=== PATIENT | male | born 1975 | race American Indian/Alaskan Native ===

== ENCOUNTER 2017-04-16 07:31 | Emergency (ER) | payer OTHER ==
[2017-04-16 07:37] VITALS: BP 152/100
[2017-04-16 09:21] LABS: Basophils % (Auto) 0.4 % (0.0-1.8); Eosinophils % (Auto) 1.1 % (0.0-4.3); Hematocrit 45.2 % (35.5-45.6); Hemoglobin 14.9 gm/dl (11.8-15.2); Mean Corpuscular HGB Conc 33 % (32-34); Mean Corpuscular Hemoglobin 29 pg (28-32); Mean Corpuscular Volume 89 fl (84-94); Platelet Count 132 K/mm3 (140-440); Red Blood Count 5.09 M/mm3 (3.65-5.03); Red Cell Distribution Width 13.9 % (13.2-15.2); White Blood Count 13.9 K/mm3 (4.5-11.0)
[2017-04-16 09:26] LABS: Anion Gap 17 mmol/L; BUN/Creatinine Ratio 8.88; Blood Urea Nitrogen 8 mg/dL (9-20); Calcium 9.8 mg/dL (8.4-10.2); Carbon Dioxide 29 mmol/L (22-30); Chloride 94.8 mmol/L (98-107); Glucose 118 mg/dL (75-100); Sodium 137 mmol/L (137-145); Uric Acid 6.6 mg/dL (3.5-7.6)
--- NOTE | 2017-04-16 09:26 | XRay Report ---
Left wrist 3 views: History: Pain and swelling. Findings: No bony or articular abnormality. No fracture or dislocation. No soft tissue calcification. Impression: No evidence of acute fracture.
[2017-04-16] MEDS ORDERED: TORADOL IM ONE (09:28)
--- NOTE | 2017-04-16 09:44 | Emergency Department Report ---
ED Extremity Problem HPI - General Chief complaint: Extremity Injury, Upper Stated complaint: LT HAND SWELLING Time Seen by Provider: 04/16/17 08:28 Source: patient Mode of arrival: Ambulatory Limitations: No Limitations - History of Present Illness Initial comments: PT states he woke up Sunday with L wrist pain and swelling. PT states the pain has progressively worsened. PT states he did not injury his L wrist. PT states he is right handed and uses his R hand a lot at work but states he does not over use his Left hand. PT states he had a subjective fever last night. PT tried to get the swelling down with ice and heat but the swelling did not improve. PT denies hx of family of gout MD Complaint: joint paint Onset/Timin -: Sudden (woke up with pain ), days(s) Location: left, upper extremity History of Same: No -: Yes fever Severity scale (0 -10): 10 Consistency: constant Improves with: nothing Worsens with: palpation, other (movement ) Associated Symptoms: fever. denies: chest pain, shortness of breath - Related Data Previous Rx's Medication Instructions Recorded Last Taken Type Acetaminophen/Codeine [Tylenol #3] 1 tab PO Q6H PRN #12 tab 04/16/17 Unknown Rx Cephalexin [Keflex] 500 mg PO Q6HR #40 capsule 04/16/17 Unknown Rx Ibuprofen [Motrin] 600 mg PO Q8H PRN #15 tablet 04/16/17 Unknown Rx Sulfamethoxazole/Trimethoprim 1 each PO BID #20 tablet 04/16/17 Unknown Rx [Bactrim DS TAB] Allergies Allergy/AdvReac Type Severity Reaction Status Date / Time shellfish derived Allergy Swelling Verified 01/09/16 19:46 ED Review of Systems ROS: Stated complaint: LT HAND SWELLING Other details as noted in HPI Comment: All other systems reviewed and negative Constitutional: fever (subjective, last night ) Cardiovascular: other (denies hx of htn ) Gastrointestinal: denies: abdominal pain, nausea, vomiting Musculoskeletal: as per HPI Skin: as per HPI, change in color ED Past Medical Hx - Past Medical History Previous Medical History?: Yes Hx Hypertension: No Hx Heart Attack/AMI: No Hx Congestive Heart Failure: No Hx Diabetes: No Hx Liver Disease: No Hx Renal Disease: No Hx Sickle Cell Disease: Yes (TRAIT) Hx Seizures: No Hx Asthma: No Hx COPD: No - Surgical History Past Surgical History?: Yes Hx Appendectomy: Yes (08/18/2014) Additional Surgical History: Knee surgery as a child - Social History Smoking Status: Current Every Day Smoker Substance Use Type: Alcohol - Medications Home Medications: Home Medications Medication Instructions Recorded Confirmed Last Taken Type Acetaminophen/Codeine [Tylenol #3] 1 tab PO Q6H PRN #12 tab 04/16/17 Unknown Rx Cephalexin [Keflex] 500 mg PO Q6HR #40 capsule 04/16/17 Unknown Rx Ibuprofen [Motrin] 600 mg PO Q8H PRN #15 tablet 04/16/17 Unknown Rx Sulfamethoxazole/Trimethoprim 1 each PO BID #20 tablet 04/16/17 Unknown Rx [Bactrim DS TAB] ED Physical Exam - General Limitations: No Limitations General appearance: alert, in no apparent distress - Head Head exam: Present: atraumatic, normocephalic, normal inspection - Eye Eye exam: Present: normal appearance. Absent: conjunctival injection - ENT ENT exam: Present: normal exam, normal external ear exam - Neck Neck exam: Present: normal inspection, full ROM - Respiratory Respiratory exam: Present: normal lung sounds bilaterally. Absent: respiratory distress - Cardiovascular Cardiovascular Exam: Present: regular rate, normal rhythm, normal heart sounds - Extremities Exam Extremities exam: Present: tenderness, joint swelling. Absent: normal inspection, full ROM - Expanded Upper Extremity Exam Left Upper Arm exam: Present: normal inspection, full ROM Elbow exam: Present: normal inspection, full ROM Forearm Wrist exam: Present: tenderness, swelling, erythema, tenderness over anatomical snuff box, other (L wrist with swelling, erythema, warmth and tenderness ). Absent: full ROM, abrasion, laceration, ecchymosis, deformity, crepidus, dislocation Hand Wrist exam: Present: tenderness (to the base of L thumb ), swelling, erythema. Absent: deformity, crepidus Vascular: Present: normal capillary refill - Back Exam Back exam: Present: normal inspection, full ROM. Absent: tenderness, CVA tenderness (R), CVA tenderness (L) - Neurological Exam Neurological exam: Present: alert, oriented X3 - Psychiatric Psychiatric exam: Present: normal affect, normal mood - Skin Skin exam: Present: warm, dry, intact, erythema. Absent: normal color ED Course Vital Signs 04/16/17 04/16/17 04/16/17 07:34 09:36 10:06 Temperature 98.6 F Pulse Rate 93 H Respiratory 18 16 16 Rate Blood Pressure 152/100 O2 Sat by Pulse 99 Oximetry - Reevaluation(s) Reevaluation #1: 04/16/17 09:40 Dr Tucker aware of pt's presentation and lab findings. consult to ortho. PT given up date on results of work up Reevaluation #2: 04/16/17 10:04 Pt aware of plan of care. Mild relief from Toradol. PT given strict return precautions. PT has no questions at this time. PT aware no driving, operating heavy machinery or etoh with narcotic pain medication - Consultations Consultation #1: 04/16/17 10:[address] Tucker - outpt antibiotics and follow up - Pulse Oximetry Interpretation Digit-Finger Initial Pulse Oximetry Readin Actions Taken: none ED Medical Decision Making - Lab Data Result diagrams: 04/16/17 08:41 04/16/17 08:41 Labs 04/16/17 04/16/17 08:41 08:41 WBC 13.9 H RBC 5.09 H Hgb 14.9 Hct 45.2 MCV 89 MCH 29 MCHC 33 RDW 13.9 Plt Count 132 L Lymph % (Auto) 10.0 L [place] % (Auto) 8.6 H Eos % (Auto) 1.1 Baso % (Auto) 0.4 Lymph # 1.4 [place] # 1.2 H Eos # 0.2 Baso # 0.1 Seg Neutrophils % 79.9 H Seg Neutrophils # 11.1 H Sodium 137 Potassium 4.0 Chloride 94.8 L Carbon Dioxide 29 Anion Gap 17 BUN 8 L Creatinine 0.9 Estimated GFR > 60 BUN/Creatinine Ratio 8.88 Glucose 118 H Uric Acid 6.6 Calcium 9.8 - Radiology Data Radiology results: report reviewed L wrist - NAP - Differential Diagnosis gout, cellulitis, oa Critical Care Time: No Critical care attestation.: If time is entered above; I have spent that time in minutes in the direct care of this critically ill patient, excluding procedure time. ED Disposition Clinical Impression: Cellulitis of wrist Disposition: DISCHARGED TO HOME OR SELFCARE Is pt being admited?: No Does the pt Need Aspirin: No Condition: Stable Instructions: Cellulitis (ED) Additional Instructions: Warm compresses No driving or ETOH after taking Tylenol #3 Return in 2 days for recheck Return sooner if concerns or worsening. Prescriptions: Acetaminophen/Codeine [Tylenol #3] 1 tab PO Q6H PRN #12 tab PRN Reason: Pain , Severe (7-10) Cephalexin [Keflex] 500 mg PO Q6HR #40 capsule Ibuprofen [Motrin] 600 mg PO Q8H PRN #15 tablet PRN Reason: Pain Sulfamethoxazole/Trimethoprim [Bactrim DS TAB] 1 each PO BID #20 tablet Referrals: PRIMARY CARE, [Primary Care Provider] - 3-5 Days Forms: Work/School Release Form(ED) Time of Disposition: 10:06
[2017-04-16] MEDS ORDERED: BACTRIM DS PO ONE (10:07)
[2017-04-16] MEDS ORDERED: KEFLEX PO ONE (10:07)
== END 2017-04-16 10:17 | disposition home or self-care (01) ==
LOC: ED 07:31
DX: L03.114 Cellulitis of left upper limb (principal); D57.1 Sickle-cell disease without crisis; F17.200 Nicotine dependence, unspecified, uncomplicated; Z91.013 Allergy to seafood
CPT/HCPCS: 36415; 73110; 80048; 84550; 85025; 96372; 99284; J1885